=== PATIENT | female | born 1945 | race Two or more races ===

== ENCOUNTER 2018-03-08 11:49 | Emergency (ER) | payer MEDICARE, MEDICAID ==
[~2018-03-08] VITALS: Ht 154.9 cm; Wt 59.0 kg
[2018-03-08 12:29] VITALS: BP 127/74
[2018-03-08] MEDS ORDERED: PHENAZOPYRIDINE HCL 100 MG TAB PO ONE (13:00)
[2018-03-08 13:53] LABS: Urine Bacteria MANY /hpf (None Seen); Urine Blood 1+ /uL (Negative); Urine Specific Gravity 1.007 (1.001-1.035); Urine WBC 129 /hpf (0 - 5)
== END 2018-03-08 13:15 | disposition home or self-care (01) ==
LOC: ER 11:49
DX: N30.00 Acute cystitis without hematuria (principal); I10 Essential (primary) hypertension; E78.00 Pure hypercholesterolemia, unspecified
CPT/HCPCS: 81001

== ENCOUNTER 2021-09-11 21:16 | Emergency (ER) | payer OTHER, MEDICAID ==
[~2021-09-11] VITALS: Ht 157.5 cm; Wt 62.6 kg
[2021-09-11 23:26] LABS: Urine Bacteria NONE SEEN /hpf (None Seen); Urine Blood 3+ /uL (Negative); Urine Specific Gravity 1.014 (1.001-1.035); Urine WBC 552 /hpf (0 - 5); Urine WBC Clumps PRESENT /hpf (None Seen)
[2021-09-12] MEDS ORDERED: cefTRIAXone W LIDOCAINE 1 GM IM IM ONE (04:00)
[2021-09-12] MEDS ORDERED: cefTRIAXone SOD 1,000 MG VL ONE (04:07)
[2021-09-12 04:56] VITALS: BP 146/75
[2021-09-12] MEDS ORDERED: CEFD300C2 PO (05:01)
== END 2021-09-12 05:06 | disposition home or self-care (01) ==
LOC: ER 21:16
DX: N39.0 Urinary tract infection, site not specified (principal); I10 Essential (primary) hypertension; E78.5 Hyperlipidemia, unspecified; Z79.899 Other long term (current) drug therapy
CPT/HCPCS: 81001; 87086; 96372; 99283; J0696; 87088; 87186